=== PATIENT | female | born 1990 | race Asian ===

== ENCOUNTER 2022-08-25 13:45 | Inpatient (IN) | payer MEDICAID ==
[~2022-08-25] VITALS: Ht 157.5 cm; Wt 62.6 kg
[2022-08-25] MEDS ORDERED: BUTORPHANOL TARTRATE 2 MG/ML VIAL IV PRN (15:15)
[2022-08-25] MEDS ORDERED: LIDOCAINE HCL 1% 20ML VIAL (Pyxis) INJ INFIL SCH (15:15)
[2022-08-25] MEDS ORDERED: MISOPROSTOL 100MCG TABLET VG SCH (15:15)
[2022-08-25] MEDS ORDERED: NALOXONE HCL 0.4 MG/ML 1ML VIAL IM PRN (15:15)
[2022-08-25] MEDS ORDERED: PREN-55 PO (15:30)
[2022-08-25] MEDS ORDERED: LACTATED RINGERS 1,000 ML IV SCH (15:30)
[2022-08-25 17:13] LABS: BASOPHILS % 0.4 % (0.0-2.0); EOSINOPHILS % 0.5 % (0.0-5.0); HEMOGLOBIN. 12.5 g/dL (12.0-16.0); LYMPHOCYTES % 20.5 % (20.0-50.0); MEAN PLATELET VOLUME 7.5 fl (7.4-10.4); NEUTROPHILS % 68.6 % (40.0-76.0); PLATELET 280 x1000/uL (130-400); RED BLOOD CELL COUNT 3.91 mill/uL (4.2-5.4); RED CELL DISTRIBUTION WIDTH 16.4 % (11.6-14.6)
[2022-08-25 17:26] LABS: *AMPHETAMINES SCREEN URINE NEGATIVE (NEGATIVE); *BARBITURATES SCREEN URINE NEGATIVE (NEGATIVE); *BENZODIAZEPINES SCREEN URINE NEGATIVE (NEGATIVE); *COCAINE SCREEN URINE NEGATIVE (NEGATIVE); CANNABINOID URINE SCREEN NEGATIVE (NEGATIVE); METHADONE URINE SCREEN NEGATIVE (NEGATIVE); OPIATES URINE SCREEN NEGATIVE (NEGATIVE); PHENCYCLIDINE URINE SCREEN NEGATIVE (NEGATIVE)
[2022-08-25 17:55] LABS: HEPATITIS B SURFACE ANTIGEN NEGATIVE
[2022-08-25] MEDS: OXYTOCIN 30 UNITS/500ML NS PMX 500 ML IV SCH ×2 (18:11→21:25)
[2022-08-25] MEDS ORDERED: OXYTOCIN 30 UNITS/500ML NS PMX 500 ML IV SCH (22:00)
[2022-08-25] MEDS ORDERED: DIPHENHYDRAMINE 25MG CAPSULE PO PRN (22:00)
[2022-08-25] MEDS ORDERED: RHO(D) IMMUNE GLOBULIN 300 MCG/SYR IM PRN (22:00)
[2022-08-25] MEDS ORDERED: IBUPROFEN 800MG TABLET PO PRN (22:00)
[2022-08-25] MEDS ORDERED: ACETAMINOPHEN WITH CODEINE 300/30MG TABLET PO PRN (22:00)
[2022-08-25] MEDS ORDERED: GLYCERIN/WITCH HAZEL LEAF MEDICATED PAD TOP PRN (22:00)
[2022-08-25] MEDS ORDERED: IBUPROFEN 400MG TABLET PO PRN (22:00)
[2022-08-25] MEDS ORDERED: BISACODYL 10MG SUPP PR PRN (22:00)
[2022-08-25] MEDS ORDERED: HEMORRHOIDAL SUPP PR PRN (22:00)
[2022-08-25] MEDS ORDERED: BENZOCAINE/LANOLIN/ALOE VERA SPRAY TOP PRN (22:00)
[2022-08-25] MEDS ORDERED: LANOLIN OINT 7GM TUBE TOP PRN (22:00)
[2022-08-25 23:00] VITALS: BP 103/63
[2022-08-26 04:00] VITALS: BP 118/63
[2022-08-26 06:40] LABS: BASOPHILS % 0.3 % (0.0-2.0); EOSINOPHILS % 0.1 % (0.0-5.0); HEMATOCRIT. 29.1 % (36.0-48.0); HEMOGLOBIN. 10.2 g/dL (12.0-16.0); LYMPHOCYTES % 13.9 % (20.0-50.0); MEAN CORPUSCULAR HEMOGLOBIN 32.5 pg (28.0-32.0); MEAN CORPUSCULAR VOLUME 92.6 fL (81.0-99.0); MONOCYTES % 9.9 % (2.0-8.0); NEUTROPHILS % 75.8 % (40.0-76.0); PLATELET 195 x1000/uL (130-400); RED BLOOD CELL COUNT 3.14 mill/uL (4.2-5.4); RED CELL DISTRIBUTION WIDTH 16.5 % (11.6-14.6)
[2022-08-26] MEDS: MAGNESIUM/ALUMINUM HYDROXIDE/SIMETHICONE 30ML UDC PO SCH ×4 (07:30→20:46)
[2022-08-26] MEDS: FERROUS SULFATE 325MG TABLET PO SCH ×3 (07:30→17:49)
[2022-08-26] MEDS: SIMETHICONE 80MG TABLET CHEW PO SCH ×4 (08:00→20:47)
[2022-08-26] MEDS: PRENATAL VIT/FE FUMARATE/FA TABLET PO SCH (08:03)
[2022-08-26 08:30] VITALS: BP 122/72
[2022-08-26 15:52] VITALS: BP 111/70
[2022-08-26 20:00] VITALS: BP 115/73
[2022-08-26] MEDS ORDERED: DOCUSATE SODIUM 100MG CAPSULE PO SCH (21:00)
[2022-08-27 03:30] VITALS: BP 122/72
[2022-08-27] MEDS ORDERED: FERR-63 PO (06:39)
[2022-08-27] MEDS ORDERED: IBUP-2030 PO (06:39)
[2022-08-27 07:23] VITALS: BP 108/73
[2022-08-27] MEDS: PRENATAL VIT/FE FUMARATE/FA TABLET PO SCH (08:07)
[2022-08-27] MEDS: FERROUS SULFATE 325MG TABLET PO SCH (08:07)
[2022-08-27] MEDS: SIMETHICONE 80MG TABLET CHEW PO SCH (08:08)
[2022-08-27] MEDS: MAGNESIUM/ALUMINUM HYDROXIDE/SIMETHICONE 30ML UDC PO SCH (08:08)
== END 2022-08-27 11:55 | disposition home or self-care (01) | DRG 560 ==
LOC: 8 EST LDRP 13:45 → OBSVTOIN 16:10 → 8EST 22:50
PROVIDERS: ADMIT Obstetrics & Gynecology; ATTEND Obstetrics & Gynecology
PROC: 10E0XZZ Delivery of Products of Conception, External Approach (ICD-10-PCS; principal; 2022-08-25)
PROC: 0KQM0ZZ Repair Perineum Muscle, Open Approach (ICD-10-PCS; 2022-08-25)
PROC: 3E0R3BZ Introduction of Anesthetic Agent into Spinal Canal, Percutaneous Approach (ICD-10-PCS; 2022-08-25)
PROC: 00HU33Z Insertion of Infusion Device into Spinal Canal, Percutaneous Approach (ICD-10-PCS; 2022-08-25)
DX: O69.81X0 Labor and delivery complicated by cord around neck, without compression, not applicable or unspecified (principal); Z37.0 Single live birth; O24.420 Gestational diabetes mellitus in childbirth, diet controlled; D64.9 Anemia, unspecified; Z20.822 Contact with and (suspected) exposure to COVID-19; O70.1 Second degree perineal laceration during delivery; Z3A.38 38 weeks gestation of pregnancy; O90.81 Anemia of the puerperium
CPT/HCPCS: 36415; 76805; 76818; 80305; 82947; 85025; 86592; 86703; 86762; 86850; 86900; 87340; 87426; 99281; G0378; J0595; J3490; J7120; J2590